=== PATIENT | male | born 2000 | race Caucasian/White ===

== ENCOUNTER 2024-11-25 19:55 | Emergency (ER) | payer OTHER, SELFPAY ==
[2024-11-25 20:08] VITALS: BP 114/78; PULSE 85; RESP 15; TEMP 36.2; O2SAT 97; BMI 23.6
--- NOTE | 2024-11-25 20:20 | CTR_ITS ---
PROCEDURE INFORMATION: Exam: CT Cervical Spine Without Contrast Exam date and time: 11/25/2024 9:05 PM Age: 24 years old Clinical indication: Injury or trauma; Fall; Blunt trauma; Patient HX: Patient fell approx 3-4 feet off of porch with headstrike. TECHNIQUE: Imaging protocol: Computed tomography of the cervical spine without contrast. Radiation optimization: All CT scans at this facility use at least one of these dose optimization techniques: automated exposure control; mA and/or kV adjustment per patient size (includes targeted exams where dose is matched to clinical indication); or iterative reconstruction. COMPARISON: CT head wo con* [id number] 11/25/2024 9:03 PM RADIATION DOSE METRICS: Total DLP (mGy-cm): 289.17 FINDINGS: Bones: No acute fracture. Straightening of cervical lordosis. Normal alignment. No significant disc bulge or herniation. No severe spinal canal stenosis. No significant neural foraminal narrowing. Lungs: Lung apices are normal. Soft tissues: Unremarkable. CT/CT cervical spin wo con* [id number] IMPRESSION: No acute findings.
--- NOTE | 2024-11-25 20:20 | CTR_ITS ---
PROCEDURE INFORMATION: Exam: CT Head Without Contrast Exam date and time: 11/25/2024 9:03 PM Age: 24 years old Clinical indication: Injury or trauma; Fall; Blunt trauma (contusions or hematomas); Patient HX: Patient fell approx 3-4 feet off of porch with headstrike. TECHNIQUE: Imaging protocol: Computed tomography of the head without contrast. Radiation optimization: All CT scans at this facility use at least one of these dose optimization techniques: automated exposure control; mA and/or kV adjustment per patient size (includes targeted exams where dose is matched to clinical indication); or iterative reconstruction. COMPARISON: No relevant prior studies available. RADIATION DOSE METRICS: Total DLP (mGy-cm): 1041.68 FINDINGS: Brain: Normal. No hemorrhage. Unremarkable white matter. No mass effect. Cerebral ventricles: No ventriculomegaly. Paranasal sinuses: Visualized sinuses are unremarkable. No fluid levels. Mastoid air cells: Visualized mastoid air cells are well aerated. Bones: Unremarkable. No acute fracture. Soft tissues: Unremarkable. CT/CT head wo con* [id number] IMPRESSION: No acute intracranial abnormality.
[2024-11-25 22:09] VITALS: BP 119/84; PULSE 65; O2SAT 96
[2024-11-25 22:41] LABS: Alcohol Level 157 mg/dL (0-10)
--- NOTE | 2024-11-25 22:51 | ED_ITS ---
HPI - Fall General: Chief Complaint: Fall Stated Complaint: fell hit head Time Seen by Provider: 11/25/24 21:49 History of Present Illness: Jamie Klein is a 24-year-old male that presents to the emergency department after a fall from standing. Patient's significant other is at bedside and reports that he had been drinking this afternoon and as a result of became pretty intoxicated and had multiple falls. She notes 2 falls in particular that he struck his head. He did not have a loss of consciousness but he did have several episodes of vomiting after the falls. There were periods of time where he seemed confused and she was not certain if this was alcohol related or head injury related. Patient is a healthy 24-year-old without chronic medical conditions or routine medicines. He does not drink routinely and does not use any illicit substances. He is not anticoagulated Related Data Allergies Allergy/AdvReac Type Severity Reaction Status Date / Time grass pollen Allergy ALGY-Nasal Verified 11/25/24 20:11 Discharge Review of Systems General: Reports: 10 or more systems reviewed and unremarkable except in HPI and below Physical Exam Const: COMMON NORMALS: no acute distress, patient oriented x3 and alert GENERAL APPEARANCE: cooperative ORIENTATION/CONSCIOUSNESS: Yes awake, Yes oriented to person, Yes oriented to place and Yes oriented to time Neck/C-Spine: COMMON NORMALS: full ROM GENERAL: Yes normal visual inspection Lymph: LYMPHATIC: no lymphadenopathy noted Chest: COMMONS NORMALS: normal inspection of the chest Breast/axilla inspection: Yes no chest deformity, asymmetry, normal contours, no nodules, masses, tenderness Resp: COMMON NORMALS: normal respiratory effort, No retractions, No use of accessory muscles and clear to auscultation bilaterally EFFORT & INSPECTION: Yes able to speak in complete sentences and Yes symmetric chest movement AUSCULTATION: clear to auscultation bilaterally Cardio: COMMON NORMALS: regular rate, regular rhythm and Peripheral pulses 2+ throughout RATE: regular rate RHYTHM: regular rhythm PERIPHERAL PULSES: Peripheral pulses 2+ throughout GI: COMMON NORMALS: Normal to inspection, nondistended, normoactive bowel sounds present, Soft to palpation, non-tender and No hepatosplenomegaly present INSPECTION: Yes normal to inspection AUSCULTATION: Yes normoactive bowel sounds PALPATION: Yes Soft to palpation and Yes No hepatosplenomegaly present RECTAL EXAM: Yes deferred Extremity: COMMON NORMALS: normal to inspection GENERAL: Yes normal exam except as noted Neuro: COMMON NORMALS: patient oriented x3 SENSORIUM/ORIENTATION: Yes a lert, Yes oriented to person, Yes oriented to place and Yes oriented to time CRANIAL NERVES: Yes CN normal except as noted Psych: COMMON NORMALS: mental status grossly normal, Normal thought process present, cooperative, activity/motor behavior normal, denies homicidal ideation and denies suicidal ideation THOUGHT PROCESS: Normal thought process present Skin: COMMON NORMALS: no rashes or lesions noted, no wounds and turgor normal GENERAL SKIN EXAM: no rashes or lesions noted and turgor normal Course Vital Signs: Vital signs: Vital Signs Temperature 97.2 F L 11/25/24 20:08 Pulse Rate 65 11/25/24 22:09 Respiratory Rate 15 11/25/24 20:08 Blood Pressure 119/84 11/25/24 22:09 Pulse Oximetry 96 11/25/24 22:09 Oxygen Delivery Me thod Room Air 11/25/24 22:09 MDM - Fall Medical Decision Making Patient underwent CT imaging of his head and cervical spine imaging revealed no acute intracranial injury or cervical injury. Due to his significant intoxication, I did obtain a blood alcohol level which was 157. Patient's significant other and I discussed head injuries and what to monitor for. I have advised her to monitor her symptoms tonight. Make sure he is resting quietly. He might be more prone to headaches and irritability over the next couple days to couple weeks. If his headache is worse or he develops new symptoms she can always bring him back here to be reevaluated. Patient is agreeable with plan and cleared for discharge Lab Data Radiology Impressions Cervical Spine CT 11/25/24 20:20 IMPRESSION: No acute findings. Head CT 11/25/24 20:20 IMPRESSION: No acute intracranial abnormality. Laboratory Results Ethyl Alcohol 157 mg/dL (0-10) H 11/25/24 22:02 All radiology interpretation(s) finalized by discharge Discharge Plan Discharge Patient Disposition: Home Clinical Impression: Concussion without loss of consciousness, Alcohol intoxication Condition: Stable Discharge Orders: Discharge ED (Routine); Ordered 11/25/24 Ordered By: Alberto Momin Discharge Diet: Advance as tolerated Discharge Activity: Resume usual activity Patient Instructions: Concussion (ED), Post Concussion Syndrome (ED), Pain Management Coding Level of Care Code ED Machine [employer] Eng[employer] for Radha Wilson
[2024-11-25 22:59] VITALS: BP 116/73; PULSE 66; O2SAT 96
== END 2024-11-25 23:00 | disposition home or self-care (01) ==
PROVIDERS: Emergency Provider Nurse Practitioner
DX: S06.0X0A Concussion without loss of consciousness, initial encounter (principal); F10.129 Alcohol abuse with intoxication, unspecified; Y90.6 Blood alcohol level of 120-199 mg/100 ml; W19.XXXA Unspecified fall, initial encounter
CPT/HCPCS: 36415; 70450; 72125; 80307; 99284